=== PATIENT | female | born 1965 | race Caucasian/White ===

== ENCOUNTER 2022-07-16 07:25 | Day surgery (SDC) | payer OTHER, SELFPAY ==
[2022-05-03 14:08] VITALS: BMI 33.1
[2022-07-03 10:27] VITALS: BMI 32.2
--- NOTE | 2022-07-13 16:15 | PM.HPGS ---
History of Present Illness History of Present Illness Consent: Risks, benefits, and alternatives have been discussed and questions answered. Patient agrees to proceed with procedure. Chief complaint: History of Polyps Narrative: Kirsten Suresh is a 56 year old female referred for colon cancer screening. She had 1 polyp removed about 8 years ago. Review of Systems Review of Systems: All systems reviewed & are unremarkable except as noted in HPI and below PMFSH Past Medical History Medical History Encounter for annual general medical examination without abnormal findings in adult Family History Family History Other Diabetes mellitus Family history of coronary artery disease Family history of malignant neoplasm of thyroid Hypertension Social History Social History Smoking status: Never smoker Second hand tobacco smoke exposure: No Smoking end date: 05/20/93 Alcohol intake: current Drinks per week: 2 Substance use: never Substance use type: does not use Living arrangements: with family Spiritual care concerns: No Meds Home Medications and Allergies Home Medications Medication Instructions Recorded Confirmed Type No Home Medications 01/30/22 07/16/22 History Allergies Allergy/AdvReac Type Severity Reaction Status Date / Time No Known Allergies Allergy Verified 07/16/22 08:22 Exam Const: General: alert Orientation/consciousness: patient oriented x3 Resp: Auscultation: clear to auscultation bilaterally Cardio: Rhythm: regular rhythm GI: GI Palp: Yes Soft to palpation and No Tenderness to palpation present (GI) Neuro: General: patient oriented x3 Assessment and Plan Assessment and plan (1) Colon cancer screening: Code(s): Z12.11 - Encounter for screening for malignant neoplasm of colon Status: Acute Assessment and Plan: Colonoscopy with possible biopsy or polypectomy or cautery or injection of substances.
--- NOTE | 2022-07-16 07:34 | WPDANESEPPF ---
Anes - Initial Pre Proc Eval Procedure: Operation Date: 07/16/22 09:00 Proposed Procedures p Screening Colonoscopy - Wild Houser MD Date/Time: 07/16/22 07:34 Surgeon: Wild Houser MD Pre Op Diagnosis: History of Polyps Patient Data Age: 56 Gender: F Height: 1.75 m Weight: 99 kg Allergies Allergy/AdvReac Type Severity Reaction Status Date / Time No Known Allergies Allergy Verified 07/16/22 08:22 Home Medications Medication Instructions Recorded Confirmed Type No Home Medications 01/30/22 07/03/22 History Patient hx anesthesia problems: none Family hx anesthesia problems: none Results Review: All pre-operative results and documents have been reviewed as part of the pre-operative evaluation. [facility] Past Medical History Medical History (Updated 07/13/22 @ 16:15 by Wild Houser MD) Encounter for annual general medical examination without abnormal findings in adult Family History Family History Other Diabetes mellitus Family history of coronary artery disease Family history of malignant neoplasm of thyroid Hypertension Social History Social History (Updated 01/30/22 @ 10:36 by Asha Strauss CMA) Smoking status: Never smoker Second hand tobacco smoke exposure: No Smoking end date: 05/20/93 Alcohol intake: current Drinks per week: 2 Substance use: never Substance use type: does not use Living arrangements: with family Spiritual care concerns: No Anes - Eval Final PreProcedure Day of Procedure 07/16/22 07:34 Patient weight: obese Heart: regular rate and rhythm Lungs: clear to auscultation Airway: Mallampati scale class II Neurological: alert and oriented Last oral intake: >/= 8 hours ASA classification: II Emergent: no Anesthetic plan: proceed Anesthesia type and monitoring: general GIVS and standard monitoring Results Review: All pre-operative results and documents have been reviewed as part of the pre-operative evaluation. Informed Consent: The patient's anesthetic plan and its attendant risks and benefits were discussed with the patient/family/POA. Questions were solicited and answers provided to the satisfaction of the patient/family/POA.
[2022-07-16 07:40] VITALS: BP 143/89; PULSE 75; RESP 18; TEMP 36.8; O2SAT 100
[2022-07-16] MEDS: LACTATED RINGERS 1,000 ML 150 ML IV CONT (08:19)
[2022-07-16 09:20] VITALS: BP 114/54; PULSE 70; RESP 20; O2SAT 99
[2022-07-16 09:30] VITALS: BP 139/75; PULSE 72; RESP 20; O2SAT 100
[2022-07-16 09:40] VITALS: BP 124/71; PULSE 62; RESP 20; O2SAT 100
--- NOTE | 2022-07-16 11:59 | WPDANESPN ---
Anes - Prog Note Post-Op Date/Time: 07/16/22 11:59 Cardiovascular status: normal Respiratory status: normal Airway patency: baseline Mental status: baseline Post-Op hydration status: normal Vital Signs: Last Vital Signs Temp 36.8 C 07/16/22 07:40 Pulse 62 07/16/22 09:40 Resp 20 07/16/22 09:40 BP 124/71 07/16/22 09:40 Pulse Ox 100 07/16/22 09:40 O2 Del Method Room Air 07/16/22 09:40 Pain Score (VAS): 0 I/O: Intake & Output 07/15/22 07/16/22 07/16/22 23:59 07:59 15:59 Intake Total 650 Balance 650 Post-procedural complaints: none Patient Feedback: Patient satisfied with anesthetic care. Other Findings: Patient vital signs back to baseline. Patient denies nausea and vomiting. Patient's pain under control. Patient OK for discharge.
== END 2022-07-16 09:50 | disposition home or self-care (01) ==
PROVIDERS: PCP Family Medicine; Visit Provider Internal Medicine Gastroenterology
PROC: 0DJD8ZZ Inspection of Lower Intestinal Tract, Via Natural or Artificial Opening Endoscopic (ICD-10-PCS; CPT 45378; principal; 2022-07-16 09:00)
DX: Z12.11 Encounter for screening for malignant neoplasm of colon (principal)
CPT/HCPCS: 45385; 45382

== ENCOUNTER 2022-07-16 09:00 | Outpatient (NON) | payer OTHER, SELFPAY | END 2022-07-16 09:01 | disposition home or self-care (01) | LOC: ANHLAB 07-17 07:51 | PROVIDERS: PCP Family Medicine; Visit Provider Internal Medicine Gastroenterology | DX: Z12.11 Encounter for screening for malignant neoplasm of colon (principal); D12.7 Benign neoplasm of rectosigmoid junction; D12.0 Benign neoplasm of cecum | CPT/HCPCS: 88305 ==